=== PATIENT | male | born 1985 | race Caucasian/White ===

== ENCOUNTER 2022-01-25 23:27 | Emergency (ER) | payer OTHER ==
[2022-01-26 00:06] LABS: RAPID STREP SCREEN Negative (Negative)
[2022-01-26] MEDS ORDERED: DEXAMETHASONE 10 MG/ML VIAL PO STA (00:20)
[2022-01-26] MEDS ORDERED: CHERRY SYRUP 10 ML UDC PO ONE (00:20)
--- NOTE | 2022-01-26 00:25 | ED Physician Documentation ---
PD HPI HEENT - Stated complaint Stated Complaint: THROAT AND EAR PX - Chief complaint Chief Complaint: Heent - History obtained from History obtained from: Patient - Additional information Additional information: Patient is a 36-year-old male with no significant past medical history presenting for evaluation of sore throat and left ear pain that been present since yesterday. He went to the [facility] clinic and had a strep swab done but results were not back at the time of clinic closure. Patient tried Motrin and Tylenol today without improvement in his symptoms and was having trouble sleeping prompting him to come to the emergency department. He denies fever, cough, congestion, chest pain or difficulty breathing.He tried salt water gargle without improvement in his symptoms. He had frequent ear infections as a child but not in recent years. His son is also starting to become sick with upper respiratory infection symptoms. Review of Systems Constitutional: denies: Fever Ears: reports: Ear pain Nose: denies: Congestion Throat: reports: Sore throat Cardiac: denies: Chest pain / pressure, Palpitations Respiratory: denies: Dyspnea, Cough GI: denies: Abdominal Pain, Vomiting : denies: Dysuria Skin: denies: Rash Musculoskeletal: denies: Back pain Neurologic: denies: Headache PD PAST MEDICAL HISTORY - Past Medical History Past Medical History: No - Past Surgical History Past Surgical History: Yes - Present Medications Home Medications: Ambulatory Orders Medication Instructions Recorded Confirmed Cefdinir 300 mg PO BID #20 cap 01/26/22 - Allergies Allergies/Adverse Reactions: Allergies Allergy/AdvReac Type Severity Reaction Status Date / Time Penicillins Allergy Hives Verified 01/25/22 23:32 - Social History Does the pt smoke?: No Smoking Status: Never smoker Does the pt drink ETOH?: No Does the pt have substance abuse?: No - Immunizations Immunizations are current?: Yes PD ED PE NORMAL - General General: Alert and oriented X 3, No acute distress, Well developed/nourished - HEENT HEENT: Atraumatic, Moist mucous membranes, Pharynx benign (No oral swelling or exudate, normal speech, no trismus). No: Ears normal - Neck Neck: Supple, no meningeal sign - Cardiac Cardiac: RRR, No murmur, Strong equal pulses - Respiratory Respiratory: No respiratory distress, Clear bilaterally - Neuro Neuro: Normal speech - Psych Psych: Normal mood PD ED PE EXPANDED - HEENT HEENT: L TM red, L TM dull, L TM bulging. No: R TM red, R TM dull, R TM bulging, R TM retracted, Right maxillary sinus TTP, Left maxillary sinus TTP Results - Vitals Vitals: Vital Signs - 24 hr 01/25/22 01/26/22 23:32 00:31 Temperature 36.5 C 36.5 C Heart Rate 63 65 Respiratory 16 16 Rate Blood Pressure 138/90 H 132/81 H O2 Saturation 99 98 Oxygen O2 Source Room air - Labs Labs: Laboratory Tests 01/25/22 23:55 Group A Strep Rapid Negative PD MEDICAL DECISION MAKING - ED course Complexity details: reviewed results, d/w patient ED course: Patient with sore throat and left ear pain. Patient is afebrile with reassuring vitals. Pharyngeal exam is overall very reassuring with no signs of oral abscess or exudate. No signs of airway compromise. Strep test is negative. Patient was given a dose of Decadron to help with inflammation. Patient also reporting left ear pain with feelings of pressure. On exam, Findings concerning for infection. Will start on antibiotics.Patient counseled on treatment plan and return precautions. Departure - Departure Disposition: Home, Self Care Clinical Impression: Viral pharyngitis Left otitis media Qualifiers: Otitis media type: unspecified Qualified Code(s): H66.92 - Otitis media, unspecified, left ear Condition: Stable Instructions: ED Otitis Media Acute Adult, ED Pharyngitis Viral Prescriptions: Cefdinir 300 mg PO BID #20 cap Comments: Bertin - You have been evaluated for a sore throat and ear pain. Your strep test was negative. He received a dose of a steroid that should help with the inflammation you feel in your throat. Please continue to use Motrin or Tylenol for pain as needed. Your left ear had a fair amount of wax that was removed. You do appear to have an ear infection. You were started on an antibiotic. A prescription for the antibiotic was also [place] [facility] [place] 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 Please finish the full course of antibiotics. You have any new or worsening symptoms please return to the emergency department for evaluation. Discharge Date/Time: 01/26/22 00:31
[2022-01-26 00:33] VITALS: BP 132/81
== END 2022-01-26 00:31 | disposition home or self-care (01) ==
LOC: EDBD → ED 23:27
DX: J02.8 Acute pharyngitis due to other specified organisms (principal); H66.92 Otitis media, unspecified, left ear
CPT/HCPCS: 87070; 87430; 99282; 99283; A9270

== ENCOUNTER 2023-03-16 13:23 | Outpatient (CLI) | payer OTHER ==
--- NOTE | 2023-03-16 14:13 | Sleep Patient Instructions ---
Sleep Center Visit Summary - Patient Visit Information Reason for Visit: Initial consult for evaluation of sleep disordered breathing and other sleep issues. - Patient Instructions Instructions Attached: Sleep Study, Sleep Clinic Visit Additional Instructions: You will be completing a sleep study, either an in-lab polysomnography (PSG) or home sleep study (HST). You will follow-up in the sleep care office after the sleep study is completed to hear the results and talk about therapy, if needed. You will be called by our office staff to schedule this appointment, but you may contact us with any questions. - Clinic Information Contact: [facility] [address] [place] [address] [email or web address] T: [phone]
--- NOTE | 2023-03-16 14:15 | SLEEP CARE CONSULTATION ---
Information from patient questionnaire entered by Keaton Obrien. I have reviewed and concur with the information entered by Keaton Obrien. This document represents the service I personally performed and the decisions made by me, Kristan Barillas ARNP. History of Present Illness Service Date and Time: 03/16/2023 1323 Reason for Visit: New patient Chief Complaint: reports: Unrefreshed sleep, Snoring, Fatigue Date of Onset: YRS Usual bedtime: 2300 Time it takes to fall asleep: 5-70MIN Snores at night: Yes Observed to quit breathing while asleep: Yes Number of times waking at night: 1-2 Reasons for waking at night: reports: Gasping for air, Bathroom, Other (UNKNOWN). denies: Choking, Snoring Toss, Turn, or Twitch while sleeping: No Recalls having dreams: Yes Usually gets out of bed at: 0700; weekends 0800 Feels refreshed in the morning: No Morning headache: Yes (2-3 times a week; last a couple hours after taking Motrin) Sleepy or fatigued during the day: Yes Ever fallen asleep while driving: No Takes day naps: No Dreams during day naps: No Prior sleep studies: No Additional HPI information: I had the pleasure of seeing KERRI VICTORIA today regarding the possibility of him having a sleep disorder. His current complaints are fatigue, snoring and unrefreshed sleep. He states that he has been dealing with a lot of fatigue during the day. He has tried to improve his sleep hygiene and has lost weight. He has cut out alcohol. He still does not wake up feeling rested. He states his father has sleep apnea and when they were talking he told him that he used to feel the same before he started treating his sleep apnea. He states he will also waking up with a very dry throat during the night. He will wake up several times to drink water to moisten his mouth. He used to snore louder and stop breathing before he stopped drinking alcohol. Since stopping his snoring has reduced. 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 Patient is and lives in [place]. Have you smoked in the past 12 months: No Cigarettes per day (20/pack): 20 Years of smokin Quit date: 09/22/2010 Smoking Pack Years: 10.0 Alcohol use: No Caffeine use: Yes Caffeine amount and frequency: 16OZ DAILY WEEKDAYS Family History Family history of sleep disordered breathing: Yes Family Hx Sleep Apnea: Father: Sleep apnea - Treated, Grandparent: Sleep apnea - Treated Allergies and Home Medications Known drug allergies: Yes (penicillins) Drug allergies reviewed: Yes Home medication list reviewed: Yes (Claritin, MVT) Allergy and home medication list: Allergies Penicillins Allergy (Verified 03/15/23 14:50) Hives Review of Systems Weight loss over past 5 years: 30 Cardiovascular: denies: high blood pressure Gastrointestinal: denies: heartburn Neurological: denies: headaches Psychiatric: denies: anxiety, depression Ear/Nose/Throat: reports: nasal congestion, dry mouth/throat. denies: tonsillectomy Endocrine: denies: thyroid disease Immunologic: reports: rash, itching, allergies to food or environment Physical Exam Vital signs obtained and entered by: KEATON Read MA Blood Pressure: 110/62 (LEFT ARM) Cuff size: regular Heart Rate: 72 O2 Saturation: 98 Height: 5 ft 8 in Weight: 182 lb Body Mass Index: 27.6 BMI Classification: Overweight Neck circumference: 14.25 Mouth and throat: narrow oropharynx Soft palate: long Hard palate: normal Uvula: normal Uvula visualization: 25% Mallampati Class III Tongue: enlarged in size with teeth sales on lateral edges Tonsils: small Neck: normal w/o lymphadenopathy or thyromegaly Heart: regular rate and rhythm Lungs: clear bilaterally Impression and Plan 1. Suspected Obstructive Sleep Apnea-Hypopnea Syndrome, as suggested by a history of loud and irregular snoring, observed cessation of breath while asleep, gasping or choking in sleep, morning headache, unrefreshed sleep, and excessive daytime sleepiness. Narrow oropharynx and obesity are common predisposing factors for obstructive sleep apnea-hypopnea syndrome. I recommend proceeding to polysomnography to confirm the diagnosis and to assess severity. If the patient has significant sleep disordered breathing, a manual CPAP titration study will also be performed to find the optimal treatment pressure. I informed the patient of what the sleep studies involve and after some discussion, obtained agreement to proceed. The pathophysiology of obstructive sleep apnea-hypopnea syndrome was discussed with the patient and health risks of cardiovascular and cerebrovascular disease if not treated. 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 Patient agreed to plan. * Schedule polysomnography +- manual CPAP titration study and return in 1-2 weeks after the study to discuss result and initiate therapy. * Avoid long distance driving or driving when feeling sleepy. * Avoid alcohol, sedative and muscle relaxant around bedtime. * Attempt to lose weight. * Review instructions provided by trained office staff on how to prepare for the sleep study. * Return for follow-up after sleep study completed. Counseling Topics: Weight loss health impact Visit Type: In Office Time Spent with Patient (minutes): 31 Provider Statement: I spent 100% of the Face to Face Visit with the patient with greater than 50% spent counseling the patient and coordination of care.
[2023-03-16 14:24] VITALS: BP 110/62
== END 2023-03-16 13:24 | disposition home or self-care (01) ==
LOC: SC 13:23
PROVIDERS: ATTEND Nurse Practitioner Family
DX: R06.83 Snoring (principal); R53.83 Other fatigue; G47.8 Other sleep disorders; R51.9 Headache, unspecified; G47.10 Hypersomnia, unspecified
CPT/HCPCS: 99203; 99212

== ENCOUNTER 2023-04-19 11:30 | Outpatient (CLI) | payer OTHER ==
--- NOTE | 2023-04-19 12:01 | Sleep Patient Instructions ---
Sleep Center Visit Summary - Patient Visit Information Reason for Visit: Sleep study followup - Patient Instructions Instructions Attached: Snoring Tips Prevent Additional Instructions: Your sleep study today was negative for significant sleep disordered breathing. You were found to have episodes of snoring. There are different ways to control snoring including weight loss, oral devices made by a dentist or surgical options through ENT specialist. You should not use oral devices that do not fit properly because they can affect your bite. You should also check insurance coverage of oral devices for snoring because they may not be cover well. You may obtain a referral to an ENT specialist through your primary provider Follow-up as needed. - Clinic Information Contact: [facility] [address] [place] [address] [email or web address] T: [phone]
--- NOTE | 2023-04-19 12:06 | SLEEP CARE CONSULTATION ---
Information from patient questionnaire entered by Jessica Obrien. I have reviewed and concur with the information entered by Jessica Obrien. This document represents the service I personally performed and the decisions made by , Kristan Barillas ARNP. History of Present Illness Service Date and Time: 04/19/2023 1130 Initial [place] Sleepiness Scale score: 16 (03/16/23) Current [place] Sleepiness Scale score: 16 Additional HPI information: KERRI VICTORIA returns for follow up and results of the recently performed polysomnography. The patient was informed of the following findings: No significant sleep disordered breathing with an average AHI of 4.2 and leida oxygen saturation of 89%. I explained the pathophysiology behind obstructive sleep apnea. Patient does not have sleep apnea and was advised how weight gain could increase the risk of developing sleep apnea in the future. I strongly encouraged the patient to lose weight. Patient has mild snoring. Snoring can be reduced by weight loss. Weight loss is best achieved with diet consult. Patient instructed to contact PCP for referral. Snoring can also be treated with an oral appliance from a dentist. Advised to check insurance coverage. In addition, an ENT evaluation can be do to see if other treatment is indicated. Patient does not drink alcohol. Patient was cautioned about risks of drowsy driving until sleepiness symptoms resolve. Patient denies drowsy driving. Sleep Study - Results Type of Sleep Study: Polysomnography (COMPLETED 04/06/23) Prior sleep studies: No Polysomnography/Home Sleep Study results: IMPRESSION: The quality of the study is good. The patient had slightly reduced sleep efficiency. The sleep architecture is relatively normal considering the first-night effect. Respiratory monitoring showed no significant sleep disordered breathing (AHI = 4.2) or hypoxia (leida oxygen saturation of 89%). The few respiratory events occurred almost exclusively during REM sleep. The patient only slept supine during this study (supine AHI = 4.2; non-supine = 0.00). Snore was infrequent and light in intensity. There was no significant periodic leg movement of sleep. Cardiac rhythm was normal sinus rhythm without significant arrhythmia. No abnormal behavior (parasomnia) observed during the night. Allergies and Home Medications Known drug allergies: Yes (penicillins) Drug allergies reviewed: Yes Home medication list reviewed: Yes (no changes) Allergy and home medication list: Allergies Penicillins Allergy (Verified 04/18/23 09:08) Hives Review of Systems Review of systems same as previous: Yes (no changes) Physical Exam Vital signs obtained and entered by: Kristan Winn NP Blood Pressure: 119/77 Cuff size: wrist (right) Heart Rate: 77 O2 Saturation: 99 Height: 5 ft 8 in Weight: 181 lb 6.4 oz Body Mass Index: 27.6 BMI Classification: Overweight Impression and Plan 1. Snoring but no significant sleep disordered breathing. Patient advised that often weight loss will reduce snoring as well as apnea risk. An oral appliance can also be used for snoring. This would require a dental consultation. Patient cautioned not to use other online appliances as can cause bite issues. Patient is advised to check if insurance will cover. An ENT consult can also be helpful to determine if any other treatment is an option. 2. Overweight, unspecified. Currently patients BMI is 27.6. Obesity increases the risk of apnea, CPAP pressure requirements and overall health risks especially cardiovascular and diabetes. Thus patient is advised to lose weight. * Continue to try to lose weight * The patient is cautioned about driving until sleepiness is completely resolved. * Return as needed for follow up. Counseling Topics: Weight loss health impact Visit Type: In Office Time Spent with Patient (minutes): 22 Provider Statement: I spent 100% of the Face to Face Visit with the patient with greater than 50% spent counseling the patient and coordination of care.
[2023-04-19 12:10] VITALS: BP 119/77
== END 2023-04-19 11:31 | disposition home or self-care (01) ==
LOC: SC 11:30
PROVIDERS: ATTEND Nurse Practitioner Family
DX: R06.83 Snoring (principal); E66.3 Overweight; Z68.27 Body mass index [BMI] 27.0-27.9, adult
CPT/HCPCS: 99212; 99213